=== PATIENT | male | born 1945 | race Caucasian/White ===

== ENCOUNTER 2017-10-01 13:42 | Emergency (ER) | payer OTHER ==
[2017-10-01 14:13] VITALS: BP 131/79
== END 2017-10-01 17:11 | disposition home or self-care (01) ==
LOC: ED 13:42
DX: M25.552 Pain in left hip (principal); M16.12 Unilateral primary osteoarthritis, left hip
CPT/HCPCS: J1885

== ENCOUNTER 2018-07-15 14:36 | Emergency (ER) | payer OTHER ==
[~2018-07-15] VITALS: Ht 180.3 cm; Wt 99.3 kg
[2018-07-15 14:42] VITALS: Ht 180.3 cm; Wt 99.3 kg
[2018-07-15 16:02] LABS: BASOPHIL % 0.8 % (0-2); PLATELET COUNT 318 x10^3mcL (130-400); RED CELL DISTRIBUTION WIDTH 13.4 % (11.5-14.5)
[2018-07-15 16:25] LABS: CALCIUM 10.5 mg/dL (8.5-10.1); CARBON DIOXIDE 25.3 mmol/L (21-32); CHLORIDE SERUM 108 mmol/L (98-107); CREATININE SERUM 1.1 mg/dL (0.7-1.3); GLUCOSE SERUM 106 mg/dL (74-106); POTASSIUM SERUM 3.9 mmol/L (3.5-5.1); SODIUM SERUM 143 mmol/L (136-145)
[2018-07-15 16:30] LABS: ALBUMIN 3.5 g/dL (3.4-5.0); ALKALINE PHOSPHATASE 102 U/L (46-116); ALT/SGPT 30 U/L (16-63); AST/SGOT 31 U/L (15-37); BILIRUBIN TOTAL 0.58 mg/dL (0.20-1.00)
[2018-07-15 18:30] VITALS: BP 107/70
== END 2018-07-15 18:27 | disposition home or self-care (01) ==
LOC: ED 14:36
PROVIDERS: Emergency Medicine
DX: R07.89 Other chest pain (principal); R05 Cough
CPT/HCPCS: 36415

== ENCOUNTER 2019-04-08 14:01 | Emergency (ER) | payer OTHER ==
[~2019-04-08] VITALS: Ht 177.8 cm; Wt 98.6 kg
[2019-04-08 14:06] VITALS: Ht 177.8 cm; Wt 98.6 kg
[2019-04-08 15:33] LABS: BASOPHIL % 0.5 % (0-2); PLATELET COUNT 263 x10^3mcL (130-400); RED CELL DISTRIBUTION WIDTH 13.6 % (11.5-14.5)
[2019-04-08 15:41] LABS: CALCIUM 10.3 mg/dL (8.5-10.1); CARBON DIOXIDE 27.6 mmol/L (21-32); CHLORIDE SERUM 109 mmol/L (98-107); CREATININE SERUM 1.2 mg/dL (0.7-1.3); GLUCOSE SERUM 98 mg/dL (74-106); SODIUM SERUM 142 mmol/L (136-145)
[2019-04-08 15:47] LABS: ALBUMIN 3.6 g/dL (3.4-5.0); ALKALINE PHOSPHATASE 93 U/L (46-116); ALT/SGPT 41 U/L (16-63); AST/SGOT 29 U/L (15-37); BILIRUBIN TOTAL 0.5 mg/dL (0.20-1.00); TOTAL PROTEIN, SERUM 6.9 g/dL (6.4-8.2)
[2019-04-08 15:59] LABS: CK-MB 13.8 ng/mL (0-3.6)
[2019-04-08 17:37] LABS: UA SPECIFIC GRAVITY 1.015 (1.005-1.035); microscopic required? YES; urine erythrocyte 2+ (NEGATIVE)
[2019-04-08 19:15] VITALS: BP 126/85
[2019-04-08 19:52] LABS: AMPHETAMINE QUAL UR NONE DETECTED (See below)
== END 2019-04-08 19:15 | disposition home or self-care (01) ==
LOC: ED 14:01
PROVIDERS: Emergency Medicine
DX: N39.0 Urinary tract infection, site not specified (principal); R42 Dizziness and giddiness
CPT/HCPCS: G0480; J2405; J8597; Q0092

== ENCOUNTER 2019-07-01 10:54 | Observation (INO) | payer OTHER ==
[~2019-07-01] VITALS: Ht 177.8 cm; Wt 99.3 kg
[2019-07-01 10:58] VITALS: Ht 177.8 cm; Wt 99.3 kg
--- NOTE | 2019-07-01 11:00 | NUR ---
RECEIVED PATIENT TO ROOM 9, [facility] PER REPORT PATIENT WAS WALKING IN FRONT OF HIS HOUSE AND TRIPPED AND FELL AND LANDED ON HIS LEFT SIDE. LEFT ELBOW DISLOCATION NOTED. PAIN MED GIVEN X 1 IN THE FIELD. PATIENT IS AAO X 4 (NAME, DATE TIME AND CONDITION). EYES - ALANNA, WEARS EYE GLASSES. MUCUS - PINK. SB ON MONITOR. LUNGS - CTA. BS PRESENT X 4 QUADRANTS. B/L UPPER AND LOWER EXT PULSES PALPABLE. LEFT ELBOW ON SLING, PULSES PALPABLE, PATIENT ABLE TO MOVE LEFT HAND DIGITS, C/O PAIN WHEN PALTATED. HEPLOCK ON RIGHT AC 18 GAUGE NOTED. WILL CONTINUE TO MONITOR//APR RN
--- NOTE | 2019-07-01 11:09 | NUR ---
DR BEAUCHAMP AT BEDSIDE FOR EVAL AT THIS TIME//APR RN
[2019-07-01 11:29] LABS: BASOPHIL % 1.5 % (0-2); PLATELET COUNT 221 x10^3mcL (130-400); RED CELL DISTRIBUTION WIDTH 13.4 % (11.5-14.5)
[2019-07-01 11:47] LABS: CALCIUM 10.1 mg/dL (8.5-10.1); CARBON DIOXIDE 24.2 mmol/L (21-32); CHLORIDE SERUM 109 mmol/L (98-107); CREATININE SERUM 1.2 mg/dL (0.7-1.3); GLUCOSE SERUM 107 mg/dL (74-106); SODIUM SERUM 140 mmol/L (136-145)
[2019-07-01 11:52] LABS: ALBUMIN 3.4 g/dL (3.4-5.0); ALKALINE PHOSPHATASE 101 U/L (46-116); ALT/SGPT 27 U/L (16-63); AST/SGOT 28 U/L (15-37); BILIRUBIN TOTAL 0.52 mg/dL (0.20-1.00); TOTAL PROTEIN, SERUM 6.7 g/dL (6.4-8.2)
--- NOTE | 2019-07-01 12:45 | NUR ---
DR BEAUCHAMP AT BEDSIDE FOR LEFT ELBOW REDUCTION; [facility] EMT AND APR RN AT BEDSIDE AT THIS TIME//APR RN
--- NOTE | 2019-07-01 13:20 | NUR ---
CALLED XRAY FOR POST REDUC OF LEFT ELBOW. LEFT LOWER EXT ABRASION CLEANED WITH NS, NEOSPORIN APPLIED WITH TELFA DRESSING, 4X4 GAUZE AND WRAPPED WITH KIRLEX. PATIENT TOLERATED CLEANING WELL.//APR RN
--- NOTE | 2019-07-01 15:30 | NUR ---
REPORT GIVEN TO AMBER RN FOR ROOM 254-B FOR ADMISSION. PATIENT AND FAMILY MADE AWARE OF ADMISSION AND VERBALIZED UNDERSTANDING, NO QUESTIONS AT THIS TIME//APR RN
--- NOTE | 2019-07-01 15:40 | NUR ---
PATIENT TRANSFERRED TO ROOM 254B VIA [facility] ON MONITOR WITH EMT AND APR RN //APR RN
[2019-07-01 16:29] VITALS: BP 123/64
--- NOTE | 2019-07-01 16:43 | NUR ---
RECEIVED PT FROM ER, PT ADMIT FOR SYMPTOMATIC ANASTASIA, LEFT ELBOW FX, PT IS A/O X4, VERBAL RESPONSIVE, ABLE TO TELL WHAT HE NEEDS. LUNG SOUND CLAER BILATERAL, NO COUGH, NO SOB, PT IS ON TELE 8, NSR, AT THIS MOMENT, HR 68, DENY ANY CHEST PAIN OR DISCOMFORT, BOWEL SOUND PRESENT ALL 4 QUADRANTS, NO DISTENTION, NO TENDER. PEDAL PULSE PRESENT BOTH FEET, NO EDEMA, LEFT ARM AT SPLINT, CAP REFILL AT LEFT FINGERS < 3 SEC, PT C/O LITTLE NUMBNESS AT LEFT FINGERS. C/O PAIN AT LEFT ARM 7/10 WHILE MOVING. IV AT RIGHT AC,NO LEAKING, NO INFILRATION. THERE IS ABRASION AT LEFT KNEE, COVER WITH DRY DRESSING. ALL ADLS ASSIST, ALL NEED MET, CALL LIGHT IN REACH, WILL CONTINUE TO MONITOR.
--- NOTE | 2019-07-01 16:58 | NUR ---
RECEIVED REPORT FROM CRISTINA RN, ASSUME CARE FOR THE PT, PT IN BED, IN NO ACUTE RESP DISTRESS, SLING TO (L) ARM, FAMILY AT BEDSIDE, PT MADE AWARE OF PROCEDURE TOMORROW 07/02/19 AND NPO AFTER MIDNIGHT, VERBALLY UNDERSTANDING, IV PATENT AND INFUSING WELL, NO SOB/COUGH, DENIED CP/PRESSURE/KLEIN, DENIED N/V/D, AMBULATORY, CONTINENT, DRESSING CDI, ALL NEEDS ADDRESSED AT THIS TIME, SAFETY PROTOCOL FOLLOWED, WILL CONTINUE TO MONITOR
--- NOTE | 2019-07-01 17:08 | NUR ---
PT SEEN BY DR PRUETT, QUESTIONS ASKED AND ANSWERED, NO FURTRHER CONCERNED NEEDED AT THIS TIME, SAFETY PROTOCOL FOLLOWED, CONTINUE TO MONITOR
--- NOTE | 2019-07-01 17:53 | NUR ---
PT IN BED, VERBAL, AXOXO4, ABLE TO MAKE NEEDS KNOWN, DENIED CP/PRESURE/PALPITATION, DENIED N/V/D, TELE, RESP EVEN, NO SOB/COUGH, SCDs, IV PATENT AND INFUSING WELL, SLING TO (L) HAND IN PLACE, ALL NEEDS ADDRESSED AT THIS TIME, SAFETY PROTOCOL FOLLOWED, WILL ENDORSE TO ONCOMING RN
--- NOTE | 2019-07-01 18:05 | NUR ---
PT MADE AWARE OF ORDER FOR PNEUMOCOCCAL VACCINATION, VERBALLY UNDERSTANDING AND REQUESTED FOR VACCINE GIVEN DURING HOSPITALIZATION, AWAITING FOR PHARMACIST VERIFICATION, WILL GIVEN SOON AVAILABLE
--- NOTE | 2019-07-01 19:45 | NUR ---
PT. AWAKE, ALERT, SITTING UP IN BED, WATCHING TV. ORIENTED X4. DENIES HEADACHE OR DIZZINESS. BREATH SOUNDS CLEAR THROUGHOUT LUNG ELIZONDO, STEVE. EVEN, UNLABORED. PT. ON RA. NO SOB NOTED. NSR ON TELE #8. DENIES CHESTPAIN OR DISCOMFORT. NO EDEMA TO BLE. LUE IN SLING. REPORTED THAT PT. FELL AT HOME. LT. KNEE ABRASION, MAYLIN, NO DRAINAGE. PEDAL PULSES STRONG ARIN. ABD. SOFT AND ROUND, BOWEL SOUNDS ACTIVE. IV SITE INTACT. CALL LIGHT WITHIN REACH.
[2019-07-01 21:59] VITALS: BP 117/71
--- NOTE | 2019-07-01 22:50 | NUR ---
PT. C/O DISCOMFORT AND REQUESTING PAIN MEDICATION FOR LUE. DR. CUI MADE AWARE.
[2019-07-02] VITALS (12 sets, daily range): BP systolic 94–122; BP diastolic 50–81
--- NOTE | 2019-07-02 00:17 | NUR ---
IV SITE RAC LEAKING, IV CATH REMOVED. NEW IV INSERTED TO RT. WRIST AREA. PRN TORADOL GIVEN ORDERED. LINENES AND GOWN CHANGED. PT. MADE COMFORTABLE.
--- NOTE | 2019-07-02 06:27 | NUR ---
DR. LUCERO CALLED TO CHECK DIET STATUS AND WANTS TO KEEP PT. NPO AT THIS TIME. PROCEDURE, PACEMAKER, TO BE DONE EARLY AFTERNOON PER DOCTOR.
--- NOTE | 2019-07-02 06:40 | NUR ---
PT. RESTING WELL. NO FURTHER C/O PAIN THIS MORNING. IV SITE REMAINS INTACT. CALL LIGHT WITHIN REACH. WILL ENDORSE PT. CARE TO INCOMING NURSE.
--- NOTE | 2019-07-02 07:30 | NUR ---
SEEN IN BED AAOX4. NO RESP DISTRESS NOTED. DENIES CHEST PAIN. BREATHING E/U ON ROOM AIR. NSR HR=60 ON TELE#8. KEPT NPO FOR PACEMAKER INSERTION TODAY. PATIENT MADE AWARE OF PROCEDURE. LEFT ARM SLING INPLACED FOR LEFT ELBOW REDUCTION(DONE IN ER). STATED PAIN TO LEFT ELBOW IS TOLERABLE. IVF NS INFUSING AT 80ML/HR TO RT WRIST. VOIDS, URINAL AT BEDSIDE PROVIDED. CALL LIGHT PLACED WITHIN EASY REACH. SIDERAILS UP X2.
--- NOTE | 2019-07-02 07:50 | NUR ---
CHEST XRAY AT BEDSIDE DONE.
--- NOTE | 2019-07-02 11:00 | NUR ---
IV CATHETER#20 INSERTED TO LEFT HAND WITH GOOD BLOOD RETURNED AND FLUSHED WELL.
--- NOTE | 2019-07-02 12:48 | NUR ---
OFF FLOOR FOR PACEMAKER INSERTION.
[2019-07-02 13:01] LABS: UA SPECIFIC GRAVITY 1.015 (1.005-1.035); microscopic required? YES; urine erythrocyte 2+ (NEGATIVE)
--- NOTE | 2019-07-02 14:25 | NUR ---
RECEIVED PATIENT POST PACEMAKER INSERTION VIA BED FROM CARDIAC CATH. LAB. PATIETN IS ALERT AND ORIENTED. RESP. REG. AND EVEN WITH OUT DISTRESS NOTED. NO SOB NOTED. DENIES CHEST PAIN AT THIS TIME. FAMILY AT THE BEDSIDE. DR. Vel LUCEOR SPOKE WITH FAMILY . NO C/O OR DISTRESS NOTED. DRSG. TO RIGHT UPPER CHEST INTACT, CLEAN AND DRY. PERIPHERAL PULSES PALPABLE.
--- NOTE | 2019-07-02 14:50 | NUR ---
PATIENT HAS A DRSG TO LEFT UPPER CHEST INTACT , CLEAN AND DRY WHEN RECEIVED FROM CATH. LAB. NO DRSG TO RIGHT CHEST NOTED.
--- NOTE | 2019-07-02 14:51 | NUR ---
AWAKE SITTING UP ON HIS BED. TALKING TO HIS FAMILY. RESP. REG. AND EVEN WITH OUT DISTRESS NOTED. NO SOB NOTED. DENIES CHEST PAIN AT THIS TIME. NO C/O OR DISTRESS NOTED.
--- NOTE | 2019-07-02 15:15 | NUR ---
TRANSFERRED PATIENT TO 254B VIA BED. RESP. REG. AND EVEN WITH OUT DISTRESS NOTED. NO SOB NOTED. DENIES CHEST PAIN. NO C/O OR DISTRESS NOTED. REPORT GIVEN TO Justin REAL RN.
--- NOTE | 2019-07-02 15:31 | NUR ---
RECEIVED BACK FROM PACEMAKER PLACEMENT. BROUGHT BACK VIA BED AWAKE, ALERT, ORIENTED X4. DRSG TO LEFT CHEST CDI. LEFT ARM SLING INPLACE. STATED PAIN IS MILD, REFUSED PAIN MEDS OFFERRED. V/S BP 102/67(MAP=76), HR 62, RR 18, O2SAT 96% ON ROOM AIR, AFEBRILE. CALL LIGHT PLACED WITHIN EASY REACH. SIDERAILS UP X2. FAMILY MEMBERS AT BEDSIDE. IVF NS AT 80ML/HR INFUSING WELL TO RIGHT WRIST IV SITE.
--- NOTE | 2019-07-02 16:29 | NUR ---
STATED HAVING THROBBING PAIN 3/10 ON PAIN SCALE TO LEFT ARM AND PACEMAKER INCISION SITE, TYLENOL 650MG GIVEN. WILL BE MONITORED.
[2019-07-02 16:48] LABS: BASOPHIL % 0.7 % (0-2); PLATELET COUNT 202 x10^3mcL (130-400); RED CELL DISTRIBUTION WIDTH 13.8 % (11.5-14.5)
[2019-07-02 17:03] LABS: CALCIUM 9.4 mg/dL (8.5-10.1); CARBON DIOXIDE 23.9 mmol/L (21-32); CHLORIDE SERUM 108 mmol/L (98-107); GLUCOSE SERUM 92 mg/dL (74-106); POTASSIUM SERUM 3.6 mmol/L (3.5-5.1); SODIUM SERUM 140 mmol/L (136-145)
--- NOTE | 2019-07-02 19:00 | NUR ---
NO ANY DISTRESS THROUGHOUT SHIFT. VSS. STATED PAIN TO LEFT ELBOW AND LEFT CHEST IS SUBSIDED. TOLERATED TO CARDIAC DIET WELL. IVF NS AT 80ML/HR INFUSING WELL TO RT WRIST IV SITE. SCD TO BLE INPLACE.
--- NOTE | 2019-07-02 19:25 | NUR ---
BEDSIDE REPORT RECEIVED AND CARE ASSUMED FROM OUTGOING RN. PT RESTING COMFORTABLY IN BED. FAMILY AT BEDSIDE. NO ACUTE DISTRESS NOTED. EVEN AND UNLABORED RESPIRATIONS ON RA. C/O PAIN TO PACEMAKER SITE AND LUE, WILL MEDICATE PER EMAR. ON TELE# 8 READING PACED ON DEMAND WITH UNDERLYING RHYTHM OF SR AT 61 BPM. IV PATENT AND INTACT RUNNING FLUIDS PER EMAR. BED IN LOWEST POSITION. SIDE RAILS UPX2. CALL LIGHT WITHIN REACH. WILL CONTINUE TO MONITOR.
--- NOTE | 2019-07-03 02:11 | NUR ---
PT RESTING COMFORTABLY IN BED. NO ACUTE DISTRESS NOTED. EVEN AND UNLABORED RESPIRATIONS ON RA. ON TELE#8 READING PACED ON DEMAND AT 61BPM. IV PATENT AND INTACT RUNNING FLUIDS PER EMAR. STATES PAIN IN LEFT ARM TOLERABLE AND NO PAIN MEDICATIONS NEEDED AT THIS TIME. DRESSING TO PACEMAKER SITE CDI. SLING IN USE FOR LUE. BED IN LOWEST POSITION. SIDE RAILS UPX2. CALL LIGHT WITHIN REACH. WILL CONTINUE TO MONITOR.
[2019-07-03 05:04] VITALS: BP 121/68
--- NOTE | 2019-07-03 06:24 | NUR ---
PT SLEPT COMFORTABLY IN INTERVALS THROUGHOUT THE SHIFT. NO ACUTE CHANGED NOTED. EVEN AND UNLABORED RESPIRATIONS ON RA. ON TELE# 8 READING PACED ON DEMAND AT 60BPM. IV PATENT AND INTACT. ALL NEEDS TENDED TO AND MET. ALL SCHEDULED MEDICATIONS GIVEN. PACEMAKER SITE DRESSING, CDI. SPLINT AND SLING APPLIED TO LUE. BED IN LOWEST POSITION. SIDE RAILS UPX2. CALL LIGHT WITHIN REACH. WILL ENDORSE TO ONCOMING SHIFT.
--- NOTE | 2019-07-03 07:10 | NUR ---
SEEN IN BED AAOX4. NO RESP DISTRESS NOTED. BREATHING E/U ON ROOM AIR. TELE#8 NSR WITH PACE MAKER ON DEMAND. DRSG TO PACEMAKER INCISION SITE CDI. LEFT LONG ARM SPLINT AND SLING INPLACE. STATED PAIN TO ALEFT ELBOW IS 5/10 ON PAIN SCALE. WILL BE MEDICATED PER DOCTOR'S ORDER. IVF NS TO RFA INTACT AND PATENT. SCD TO BLD INPLACE. ON HEPARIN SQ PROPHYLAXIS. CALL LIGHT PLACED WITHIN EASY REACH. SIDERAILS UP X2.
--- NOTE | 2019-07-03 07:50 | NUR ---
SEEN AMBULATED TO BATHROOM WITH STEADY GAIT. DENIES DIZZINESS.
--- NOTE | 2019-07-03 08:30 | NUR ---
[facility] [employer] HERE TO CHECK ON NEW PACEMAKER. PLEASE SEE RESULT FROM CHART.
[2019-07-03 08:37] VITALS: BP 111/62
[2019-07-03] MEDS ORDERED: KEFLEX500 M1 PO (09:34)
[2019-07-03] MEDS ORDERED: IBU600 M2 PO (09:34)
--- NOTE | 2019-07-03 09:47 | NUR ---
AM SCHEDULED MEDS GIVEN. STATED PAIN TO LEFT ELBOW 7/10 ON PAIN SCALE, TORADOL IV GIVEN FOR PAIN, WILL CONTINUE TO MONITOR.
[2019-07-03 13:30] VITALS: BP 111/66
--- NOTE | 2019-07-03 14:19 | NUR ---
NOTED DISCHARGE HOME ORDER FROM DOCTOR WILFRIDO IF OK BY DOCTOR NIC AND DOCTOR CONSUELO. DOCTOR NIC PAGED.
--- NOTE | 2019-07-03 15:58 | NUR ---
PER DOCTOR CONSUELO PATIENT IS STABLE TO BE DISCHARGED HOME.
--- NOTE | 2019-07-03 16:55 | NUR ---
DISCHARGE INSTRUCTION/PRESCRIPTION EXPLAINED AND GIVEN TO PATIENT AND PATIENT'S FAMILY MEMBERS. [employer] PACEMAKER CARD PROVIDED TO PATIENT. DRSG TO LEFT CHEST CDI. LEFT ELBOW SPLINT AND SLING INPLACE. TELEMETRY REMOVED. IV CATHETER TO RFA REMOVED WITH CATHETER INTACT, DRSG APPLIED. NO ANY DISTRESS. CONDITION STABLE.
--- NOTE | 2019-07-03 17:26 | NUR ---
BROUGHT VIA WHEELCHAIR ASSISTED BY [employer] OPER[employer] AND HIS SPOUSE TO LOBBY. NO ANY DISTRESS NOTED.
== END 2019-07-03 17:36 | disposition home health service (06) | DRG 244 ==
LOC: ED 10:54 → DU 15:29
PROVIDERS: Emergency Medicine; Specialist; ADMIT Internal Medicine
PROC: 0PSJXZZ Reposition Left Radius, External Approach (ICD-10-PCS; 2019-07-01)
PROC: 02H63JZ Insertion of Pacemaker Lead into Right Atrium, Percutaneous Approach (ICD-10-PCS; 2019-07-02)
PROC: 02HK3JZ Insertion of Pacemaker Lead into Right Ventricle, Percutaneous Approach (ICD-10-PCS; 2019-07-02)
PROC: 0JH606Z Insertion of Pacemaker, Dual Chamber into Chest Subcutaneous Tissue and Fascia, Open Approach (ICD-10-PCS; principal; 2019-07-02 12:00)
DX: I49.5 Sick sinus syndrome (principal); R00.1 Bradycardia, unspecified; S52.122A Displaced fracture of head of left radius, initial encounter for closed fracture; S80.212A Abrasion, left knee, initial encounter; Z87.891 Personal history of nicotine dependence; Z68.27 Body mass index [BMI] 27.0-27.9, adult; W01.0XXA Fall on same level from slipping, tripping and stumbling without subsequent striking against object, initial encounter; Y92.008 Other place in unspecified non-institutional (private) residence as the place of occurrence of the external cause
CPT/HCPCS: 33208; 90732; C1785; G0378; J0690; J1644; J1885; J2001; J2250; J2270; J3010; J3370; J7030; J7040; Q0092; Q9967

== ENCOUNTER 2019-08-26 12:58 | Emergency (ER) | payer OTHER ==
[~2019-08-26] VITALS: Ht 177.8 cm; Wt 90.3 kg
[~2019-08-26 12:58] MED LIST: IBU600 M2 PO; KEFLEX500 M1 PO
[2019-08-26 13:04] VITALS: Ht 177.8 cm; Wt 90.3 kg
[2019-08-26 14:36] LABS: BASOPHIL % 0.4 % (0-2); PLATELET COUNT 284 x10^3mcL (130-400); RED CELL DISTRIBUTION WIDTH 12.9 % (11.5-14.5)
[2019-08-26 14:42] LABS: CARBON DIOXIDE 31.2 mmol/L (21-32); CHLORIDE SERUM 105 mmol/L (98-107); CREATININE SERUM 1.1 mg/dL (0.7-1.3); GLUCOSE SERUM 95 mg/dL (74-106); POTASSIUM SERUM 4.2 mmol/L (3.5-5.1); SODIUM SERUM 142 mmol/L (136-145)
[2019-08-26 14:47] LABS: ALBUMIN 3.9 g/dL (3.4-5.0); ALKALINE PHOSPHATASE 104 U/L (46-116); ALT/SGPT 32 U/L (16-63); AST/SGOT 28 U/L (15-37); BILIRUBIN TOTAL 0.6 mg/dL (0.20-1.00); LIPASE 131 IU/L (73-393); TOTAL PROTEIN, SERUM 7.7 g/dL (6.4-8.2)
[2019-08-26 19:29] VITALS: BP 117/73
== END 2019-08-26 19:29 | disposition home or self-care (01) ==
LOC: ED 12:58
PROVIDERS: Emergency Medicine
DX: R10.9 Unspecified abdominal pain (principal); R22.2 Localized swelling, mass and lump, trunk; M25.512 Pain in left shoulder; Z90.49 Acquired absence of other specified parts of digestive tract; Z87.19 Personal history of other diseases of the digestive system
CPT/HCPCS: 36415

== ENCOUNTER 2019-09-30 13:26 | Emergency (ER) | payer OTHER ==
[~2019-09-30] VITALS: Ht 177.8 cm; Wt 86.6 kg
[2019-09-30 13:46] VITALS: Ht 177.8 cm; Wt 86.6 kg
[2019-09-30 17:57] VITALS: BP 110/77
== END 2019-09-30 17:57 | disposition home or self-care (01) ==
LOC: ED 13:26
DX: R42 Dizziness and giddiness (principal); Z90.49 Acquired absence of other specified parts of digestive tract; Z87.19 Personal history of other diseases of the digestive system; Z95.0 Presence of cardiac pacemaker
CPT/HCPCS: 82962